=== PATIENT | male | born 1965 | race Caucasian/White ===

== ENCOUNTER 2020-07-22 08:51 | Observation (INO) | payer MEDICAID ==
[~2020-07-22] VITALS: Ht 182.9 cm; Wt 115.0 kg
--- NOTE | 2020-07-22 09:09 | NUR ---
PT PLACED ON PULSE OX, BP CUFF. SALINE TO GUAZE DRESSING TO LAC ON L FOREHEAD. PT STATES NO LOC, STUMBLED AND FELL B/C OF BEING DRUNK. PT STATES HE TOOK HIS METFORMIN THIS AM. PT INITIALLY TOLD [facility] HE DRANK A PINT OF VODKA BUT TELLS ERP THAT HE DRANK A FIFTH. PT A/O X4. PER EMS,GENERALIZED WEAKNESS AND UNSTEADY GAIT D/T ETOH INTOXICATION. CALL LIGHT AND URINAL WITHIN REACH.
--- NOTE | 2020-07-22 09:13 | NUR ---
PT TO CT.
--- NOTE | 2020-07-22 09:31 | NUR ---
PT BACK FROM CT.
--- NOTE | 2020-07-22 10:01 | NUR ---
LAB IN TO DRAW. LAB DELAY NOTED, ERP NOTIFIED.
[2020-07-22 10:23] LABS: BASOPHILS % (AUTO) 1 % (0-1); EOSINOPHILS % (AUTO) 3 % (1-7); LYMPHOCYTES % (AUTO) 42 % (22-44); MEAN CORPUSCULAR HEMOGLOBIN 32.2 pg (27.5-34.5); MEAN CORPUSCULAR HGB CONC 34.6 g/dL (33.2-36.2); MEAN PLATELET VOLUME 7.5 fL (7.4-10.4); MONOCYTES % (AUTO) 7 % (2-9); NEUTROPHILS % (AUTO) 47 % (42-75); PLATELET COUNT 183 x10^3/uL (130-400); RED CELL DISTRIBUTION WIDTH 16.5 % (9.4-14.8)
[2020-07-22 10:32] LABS: ALBUMIN 3.3 g/dL (3.4-5.0); ANION GAP 14 mmol/L (5-15); CALCIUM 8.5 mg/dL (8.5-10.1); CHLORIDE 106 mmol/L (98-107)
[2020-07-22 10:33] LABS: CREATININE 0.92 mg/dL (0.7-1.3)
--- NOTE | 2020-07-22 10:39 | NUR ---
RESULTS BACK, PT FOR RECHECK. PT SLEEPING, NAD. VS UPDATED IN COMPUTER.
[2020-07-22] MEDS ORDERED: ACETAMINOPHEN 500 MG TABLET ONE (11:07)
[2020-07-22] MEDS ORDERED: DIPH,PERTUSS(ACELL),TET VAC/PF 0.5 ML IM-VACC ONE ×2 (11:08→11:30)
[2020-07-22] MEDS ORDERED: ACETAMINOPHEN 500 MG TABLET PO ONE (11:30)
--- NOTE | 2020-07-22 12:02 | NUR ---
PT SLEEPING, NAD. DISCHARGE PENDING PT'S ABILITY TO WALK WITH STEADY GAIT. CALL LIGHT WITHIN REACH, WATER PROVIDED.
--- NOTE | 2020-07-22 12:51 | NUR ---
PT SLEEPING SOUNDLY, CONTINUE TO OBSERVE AND WAIT FOR SAFE DISCHARGE.
--- NOTE | 2020-07-22 13:39 | NUR ---
PT AMBULATED WITH STEADY GAIT IN ROWE TO BR. PT INITIALLY REFUSED USING HIS OWN WALKER EVEN THOUGH REPORTED USES IT "ALWAYS" WITH AMBULATION. PT BECAME BELIGERANT AND MADE THREATENING PHYSICAL GESTURES TOWARD STAFF. SECURITY CALLED TO ESCORT PT OUT. [facility] PROVIDED TO PT FOR TRANSPORT TO LONG-TERM.
[2020-07-22 13:41] VITALS: BP 118/82
== END 2020-07-22 14:19 | disposition home or self-care (01) ==
LOC: ED 11:27 → EDIP 11:48
PROVIDERS: ADMIT Emergency Medicine; ATTEND Emergency Medicine
DX: F10.220 Alcohol dependence with intoxication, uncomplicated (principal); S01.81XA Laceration without foreign body of other part of head, initial encounter; H70.91 Unspecified mastoiditis, right ear; E11.9 Type 2 diabetes mellitus without complications; W01.0XXA Fall on same level from slipping, tripping and stumbling without subsequent striking against object, initial encounter; Y92.480 Sidewalk as the place of occurrence of the external cause; Y93.01 Activity, walking, marching and hiking; Z79.899 Other long term (current) drug therapy; Z23 Encounter for immunization
CPT/HCPCS: 36415; 70450; 72125; 80048; 82040; 85025; 90471; 90715; 99285; G0378

== ENCOUNTER 2020-07-26 11:20 | Emergency (ER) | payer SELFPAY ==
[~2020-07-26] VITALS: Ht 185.4 cm; Wt 90.0 kg
[2020-07-26 13:52] VITALS: BP 155/91
--- NOTE | 2020-07-26 13:53 | NUR ---
PT AWAKE, RN GAVE PT WATER. NAD NOTED AT THIS TIME. PT MAINTAINING O2 SAT WITHOUT NC IN PLACE. PLAN FOR ROADTEST.
== END 2020-07-26 14:21 | disposition home or self-care (01) ==
LOC: ED 14:15
DX: F10.120 Alcohol abuse with intoxication, uncomplicated (principal); E11.9 Type 2 diabetes mellitus without complications; Y90.0 Blood alcohol level of less than 20 mg/100 ml
CPT/HCPCS: 99283

== ENCOUNTER 2020-07-26 18:05 | Emergency (ER) | payer MEDICAID ==
[~2020-07-26] VITALS: Ht 182.9 cm; Wt 120.0 kg
[2020-07-26 18:15] VITALS: BP 141/92
--- NOTE | 2020-07-26 18:20 | NUR ---
BIB [facility]. PT FOUND DOWN ON SIDEWALK DOWNTOWN. PT UNABLE TO STAND. PT STATED HE DRANK ANOTHER FIFTH OF VODKA AFTER BEING DISCHARGED FROM ED A COUPLE HOURS AGO.
--- NOTE | 2020-07-26 19:45 | NUR ---
PT ABLE TO AMBULATE USING HIS WALKER. DISCHARGE INSTRUCTIONS REVIEWED WITH PT. ALL QUESTIONS ANSWERED AT THIS TIME
== END 2020-07-26 19:47 | disposition home or self-care (01) ==
LOC: ED 19:00
DX: F10.220 Alcohol dependence with intoxication, uncomplicated (principal); R41.82 Altered mental status, unspecified; E11.9 Type 2 diabetes mellitus without complications; Y90.0 Blood alcohol level of less than 20 mg/100 ml
CPT/HCPCS: 99283